=== PATIENT | male | born 1940 | race Caucasian/White ===

== ENCOUNTER 2018-12-16 10:05 | Day surgery (SDC) | payer MEDICARE ==
[2018-12-08 14:45] LABS: BASOPHILS % (AUTO) 0.9 % (0-1); EOSINOPHILS % (AUTO) 1.3 % (0-6); LYMPHOCYTES # (AUTO) 1.3 X10'3 (1.1-4.8); LYMPHOCYTES % (AUTO) 33.6 % (21-51); MEAN CORPUSCULAR HEMOGLOBIN 29.9 PG (27.0-31.0); MEAN CORPUSCULAR HGB CONC 32.8 g/dL (33.0-36.5); MEAN CORPUSCULAR VOLUME 91.1 FL (78-98); MEAN PLATELET VOLUME 9.4 FL (7.4-10.4); MONOCYTES # (AUTO) 0.3 X10'3 (0-0.9); MONOCYTES % (AUTO) 8.8 % (2-12); NEUTROPHILS # (AUTO) 2.1 X10'3 (1.8-7.7); NEUTROPHILS % (AUTO) 55.4 % (42-75); PRE OP HEMATOCRIT 42.3 % (42.0-52.0); PRE OP HEMOGLOBIN 13.9 g/dL (14.0-17.9); PRE OP PLATELET COUNT 187 X10'3 (140-440); RED BLOOD COUNT 4.64 X10'6 (4.70-6.10); RED CELL DISTRIBUTION WIDTH 13.2 % (11.5-14.5)
[2018-12-08 15:04] LABS: ALBUMIN 3.6 G/DL (3.4-5.0); ALBUMIN/GLOBULIN RATIO 1.2 (1.1-1.5); ALKALINE PHOSPHATASE 56 IU/L (46-116); BLOOD UREA NITROGEN 15 MG/DL (7-18); BUN/CREATININE RATIO 15.8 (5.4-32.0); CALCIUM 8.5 MG/DL (8.5-10.1); CHLORIDE 102 MMOL/L (99-107); CREATININE 0.95 MG/DL (0.60-1.10); PRE OP ALT 23 U/L (30-65); PRE OP ANION GAP 8 (8-16); PRE OP AST 17 U/L (10-37); PRE OP BILIRUB, TOTAL 0.4 MG/DL (0.0-1.0); PRE OP GLUCOSE 110 MG/DL (70-104); PRE OP POTASSIUM 4.5 MMOL/L (3.4-5.1); PRE OP SODIUM 142 MMOL/L (135-145); TOTAL CARBON DIOXIDE 31.7 MMOL/L (24-32); TOTAL PROTEIN 6.7 G/DL (6.4-8.2); eGFR 76 ML/MIN
[2018-12-08 15:07] LABS: PARTIAL THROMBOPLASTIN TIME 28 SECONDS (22-32)
[~2018-12-16] VITALS: Ht 185.4 cm; Wt 82.6 kg
[2018-12-16] VITALS (15 sets, daily range): BP systolic 105–154; BP diastolic 63–93
[~2018-12-16 10:05] MED LIST: BUPR150T6 PO; CITA20TA28 PO; FLO0.4C PO; PANT40TA39 PO; famotidine 20mg tablet PO ONE; ringers solution, lacted 1,000 ML IV SCH
[2018-12-16] MEDS ORDERED: cefazolin/dext.iso 2gm/100 ML IV ONE (10:30)
[2018-12-16] MEDS ORDERED: ondansetron/PF 4mg/2ml inj IV PRN ×2 (12:30→14:25)
[2018-12-16] MEDS ORDERED: morphine 4 MG/ML inj SYRINge IV PRN ×2 (12:30)
[2018-12-16] MEDS ORDERED: ringers solution, lacted 1,000 ML IV SCH (12:30)
[2018-12-16] MEDS ORDERED: proCHLORperazine 10 MG/2 ml inj IV PRN ×2 (12:30→14:25)
[2018-12-16] MEDS ORDERED: meperidine/PF 25mg/ml syringe IV PRN ×3 (12:30)
[2018-12-16] MEDS ORDERED: fentaNYL/PF 50MCG/1 ML 2ML syringe ONE (12:35)
[2018-12-16] MEDS ORDERED: midazolam 2 mg/2 ml injection ONE ×2 (12:35→12:36)
[2018-12-16] MEDS ORDERED: propofol inj 20 ML IV ONE (14:00)
[2018-12-16] MEDS ORDERED: mag hydrox/Alum hydrox/simeth 30ml oral suspension PO PRN (14:25)
[2018-12-16] MEDS ORDERED: acetaminophen 325mg tablet PO PRN (14:25)
[2018-12-16] MEDS ORDERED: zolpidem 5mg tablet PO PRN (14:25)
[2018-12-16] MEDS ORDERED: oxybutynin 5mg tablet PO PRN (14:25)
--- NOTE | 2018-12-16 14:25 | NUR ---
Received from OR via BED , accompanied by Anesthesiologist DR FAGAN and report given by Anesthesiolgist. PATIENT WAKING UP, DENIES PAIN, V/S WNL, NEUROVASCULAR CHECKS INTACT, 20G PIV LUE, SCD ON, 3 WAY IRRIGATION F/C CATH WITH NITHIN COLOR OUTPUT
[2018-12-16] MEDS ORDERED: CITA40TA22 PO (14:54)
[2018-12-16] MEDS ORDERED: HYDROcodone/acetaminophen 10/325mg tab PO PRN (15:00)
--- NOTE | 2018-12-16 15:05 | NUR ---
PATIENT A&OX4, DENIES PAIN, V/S WNL, NEUROVASCULAR CHECKS INTACT, 20G PIV LUE, SCD ON, 3 WAY IRRIGATION F/C CATH WITH NITHIN COLOR OUTPUT. . TAKEN TO 350A WITH ALL BELONGINGS AND HOOKED UP TO MONITORS IN ROOM AND REPORT GIVEN TO RN WHO HAS TAKEN OVER PATIENT CARE.
[2018-12-16] MEDS: ceFAZolin inj. 1,000 MG in dextrose 5%-water 50ml 50 ML IV SCH ×2 (16:35→23:39)
[2018-12-16] MEDS: potassium cl 20mEq in 1/2 NS 1,000 ML IV SCH ×2 (16:35→22:21)
[2018-12-16] MEDS ORDERED: opium/belladonna alkaloids No. 15A 30mg rectal suppository RC ONE (18:00)
--- NOTE | 2018-12-16 18:00 | NUR ---
Patient c/o dizziness and heart rate in the low 30s. BP dropped from 155s to 105s. Dr. Mars made aware and new orders received. Patient heart rate now on the 50s and no longer complaints of dizziness.
--- NOTE | 2018-12-16 18:30 | NUR ---
Patient in room [facility]. I have received report from KENNETH Long and had the opportunity to ask questions and assume patient care.
--- NOTE | 2018-12-16 18:46 | NUR ---
Problems reprioritized. Patient report given, questions answered & plan of care reviewed with KENNETH Wilhelm.
[2018-12-16] MEDS: docusate sod 100mg capsule PO SCH (19:26)
[2018-12-16] MEDS: tamsulosin 0.4mg capsule PO SCH (20:34)
[2018-12-17] VITALS: BP 124/73
[2018-12-17] MEDS: potassium cl 20mEq in 1/2 NS 1,000 ML IV SCH ×3 (01:08→17:23)
[2018-12-17 04:00] VITALS: BP 127/72
[2018-12-17 05:35] LABS: ALBUMIN 3.1 G/DL (3.4-5.0); ANION GAP 6 (8-16); BLOOD UREA NITROGEN 11 MG/DL (7-18); BUN/CREATININE RATIO 12.6 (5.4-32.0); CALCIUM 8.3 MG/DL (8.5-10.1); CHLORIDE 104 MMOL/L (99-107); CREATININE 0.87 MG/DL (0.60-1.10); GLUCOSE 87 MG/DL (70-104); POTASSIUM 4.4 MMOL/L (3.5-5.1); SODIUM 139 MMOL/L (135-145); TOTAL CARBON DIOXIDE 28.7 MMOL/L (24-32); eGFR 85 ML/MIN
--- NOTE | 2018-12-17 06:18 | NUR ---
Problems reprioritized. Patient report given, questions answered & plan of care reviewed with KENNETH Tate and KENNETH Bryan.
--- NOTE | 2018-12-17 07:05 | NUR ---
Patient in room [facility]. I have received report from Que COOPER and had the opportunity to ask questions and assume patient care.
[2018-12-17 07:14] LABS: BASOPHILS % (AUTO) 0.6 % (0-1); EOSINOPHILS # (AUTO) 0.1 X10'3 (0-0.9); EOSINOPHILS % (AUTO) 1.3 % (0-6); HEMATOCRIT 39.8 % (42.0-52.0); HEMOGLOBIN 13.4 g/dl (14.0-17.9); LYMPHOCYTES # (AUTO) 0.8 X10'3 (1.1-4.8); LYMPHOCYTES % (AUTO) 14.4 % (21-51); MEAN CORPUSCULAR HGB CONC 33.6 g/dL (33.0-36.5); MEAN CORPUSCULAR VOLUME 89.4 FL (78-98); MEAN PLATELET VOLUME 9.9 FL (7.4-10.4); MONOCYTES # (AUTO) 0.5 X10'3 (0-0.9); MONOCYTES % (AUTO) 9.2 % (2-12); NEUTROPHILS # (AUTO) 4.4 X10'3 (1.8-7.7); NEUTROPHILS % (AUTO) 74.5 % (42-75); PLATELET COUNT 169 X10'3 (140-440); RED BLOOD COUNT 4.46 X10'6 (4.70-6.10); RED CELL DISTRIBUTION WIDTH 13.2 % (11.5-14.5); WHITE BLOOD COUNT 5.8 X10'3 (4.5-11.0)
[2018-12-17 07:54] VITALS: BP 107/71
[2018-12-17] MEDS ORDERED: pantoprazole 40mg Tablet.DR PO SCH (08:00)
[2018-12-17] MEDS: pantoprazole 40mg Tablet.DR PO SCH (08:25)
[2018-12-17] MEDS: buPROPion SR 150mg tablet PO SCH (08:25)
[2018-12-17] MEDS: docusate sod 100mg capsule PO SCH ×2 (08:25→20:28)
[2018-12-17] MEDS: citalopram 20mg tablet PO SCH (08:26)
[2018-12-17] MEDS: ceFAZolin inj. 1,000 MG in dextrose 5%-water 50ml 50 ML IV SCH ×3 (08:26→23:05)
[2018-12-17 11:00] VITALS: BP 110/60
[2018-12-17 18:00] VITALS: BP 111/66
--- NOTE | 2018-12-17 18:08 | NUR ---
Problems reprioritized. Patient report given, questions answered & plan of care reviewed with Darvin COOPER.
--- NOTE | 2018-12-17 18:30 | NUR ---
Patient in room [facility]. I have received report from Randi COOPER and had the opportunity to ask questions and assume patient care.
[2018-12-17] MEDS: tamsulosin 0.4mg capsule PO SCH (20:28)
[2018-12-17] MEDS: lactobacillus rhamnosus 10,000 MMU CELLS/CAPSULE PO SCH (20:28)
[2018-12-18] VITALS: BP 133/79
[2018-12-18] MEDS: potassium cl 20mEq in 1/2 NS 1,000 ML IV SCH (01:03)
--- NOTE | 2018-12-18 06:30 | NUR ---
Problems reprioritized. Patient report given, questions answered & plan of care reviewed with JOSE MANUEL RN.
[2018-12-18 07:00] VITALS: BP 157/81
[2018-12-18] MEDS: lactobacillus rhamnosus 10,000 MMU CELLS/CAPSULE PO SCH (08:05)
[2018-12-18] MEDS: docusate sod 100mg capsule PO SCH (08:05)
[2018-12-18] MEDS: buPROPion SR 150mg tablet PO SCH (08:05)
[2018-12-18] MEDS: citalopram 20mg tablet PO SCH (08:06)
[2018-12-18] MEDS: pantoprazole 40mg Tablet.DR PO SCH (08:06)
[2018-12-18 11:00] VITALS: BP 111/73
[2018-12-18] MEDS ORDERED: DOCU-148 PO (11:15)
--- NOTE | 2018-12-18 14:00 | NUR ---
PATIENT DISCHARGE WAS DONE WITH SPOUSE IN ROOM, EDUCATION ON PROCEDURE AND CARE AFTER WAS DONE AT THIS TIME. PATIENT ALSO RECIEVED EDUCATION ON SORIA CATHETER CARE AT THIS TIME AND WAS GIVEN TWO CHOICES OF LEG BAGS PLUGS FOR THIRD LUMEN OF CATHETER, NIGHT TIME BAG AND EDUCATION ON ALL THE NECCESSARY INFORMATION FOR CARE. PATIENT HAD ONE NEW Rx TO BE PICKED UP AT PHARMACY ON WAY HOME AND WAS TAKEN TO LOBBY AFTER REMOVAL OF THE IV SITE CANULA WAS WHOLE AND INTACT UPON INSPECTION. PATIENT WAS ENCOURAGED TO RETURN TO ER IF HE HAS ANY SIGNS OR SYMPTOMS OF INFECTION. PATIENT ALSO ENCOURAGED TO RETURN IF URINARY DRAINAGE CHANGEDS TO TORSTEN RED BLOOD.
== END 2018-12-18 15:49 | disposition home or self-care (01) ==
LOC: PAS 10:05 → SUR 3N 15:09 → PAS 12-18 15:49
PROVIDERS: ATTEND Urology
DX: N40.1 Benign prostatic hyperplasia with lower urinary tract symptoms (principal); N13.8 Other obstructive and reflux uropathy; N41.1 Chronic prostatitis; F32.9 Major depressive disorder, single episode, unspecified; K21.9 Gastro-esophageal reflux disease without esophagitis; M19.90 Unspecified osteoarthritis, unspecified site; Z72.89 Other problems related to lifestyle; Z79.899 Other long term (current) drug therapy; Z98.890 Other specified postprocedural states; Z86.11 Personal history of tuberculosis; Z79.01 Long term (current) use of anticoagulants
CPT/HCPCS: 36415; 52601; 80048; 80053; 82948; 85025; 85610; 85730; 86885; 86900; 86901; 93005; J0690; J2250; J2704; J3010; J7060; J7120; A4346; A4355; A4615; G0378; J3480

== ENCOUNTER 2018-12-19 00:34 | Emergency (ER) | payer MEDICARE ==
[~2018-12-19] VITALS: Ht 185.4 cm; Wt 81.8 kg
[~2018-12-19 00:34] MED LIST changes: +CITA40TA22 PO; +DOCU-148 PO; -famotidine 20mg tablet PO ONE; -ringers solution, lacted 1,000 ML IV SCH
--- NOTE | 2018-12-19 00:53 | NUR ---
REMOVED CAP ON PTS 3-WAY SORIA CATH AND IMMEDIATELY HAD BLOOD-TINGED URINE COME OUT. DRAINED INTO A BASIN ROUGHLY 150 CC. FLUSHED BLADDER WITH 75CC X3 UNTIL URINE CLEAR. NO BLOOD CLOTS NOTED.
[2018-12-19 01:38] VITALS: BP 140/77
== END 2018-12-19 00:40 | disposition home or self-care (01) ==
LOC: ER 00:34
DX: T83.098A Other mechanical complication of other urinary catheter, initial encounter (principal); Z79.899 Other long term (current) drug therapy; Z90.79 Acquired absence of other genital organ(s); Z98.890 Other specified postprocedural states
CPT/HCPCS: 88305; 99282

== ENCOUNTER 2019-04-29 23:53 | Emergency (ER) | payer MEDICARE ==
[~2019-04-29] VITALS: Ht 185.4 cm; Wt 81.0 kg
[~2019-04-29 23:53] MED LIST changes: -CITA20TA28 PO
[2019-04-30] MEDS ORDERED: ketorolac trometh. 30mg/ml inj. IM ONE (00:30)
[2019-04-30] MEDS ORDERED: HYDROcodone/acetaminophen 5mg/325mg tablet PO ONE (00:30)
[2019-04-30] MEDS ORDERED: ketorolac trometh inj. 60 MG/2 ML VIAL IM ONE (00:45)
[2019-04-30 01:03] VITALS: BP 142/81
[2019-04-30] MEDS ORDERED: LIDOcaine 1% 30ml preserv. free vial IJ ONE (01:30)
[2019-04-30 03:31] LABS: GLUCOSE,SYNOVIAL FLUID 61 MG/DL; TOTAL PROTEIN,SYNOVIAL FLUID 5.6 GM/DL
[2019-04-30 04:36] LABS: APPEARANCE,SYNOVIAL FLUID BLOODY; COLOR,SYNOVIAL FLUID RED; SYN WBC 1693 /CU MM (0-200)
[2019-04-30 04:37] LABS: LYMPHOCYTES,SYNOVIAL FLUID 19 % (0-75); MONOCYTES,SYNOVIAL FLUID 12 % (0-0); NEUTROPHILS,SYNOVIAL FLUID 69 % (0-25); SYN RBC 2323717 /CU MM (0)
[2019-04-30 05:12] LABS: SYNOVIAL FLUID CRYSTALS QT NO CRYSTALS SEEN
== END 2019-04-30 02:49 | disposition home or self-care (01) ==
LOC: ER 23:54
DX: M25.461 Effusion, right knee (principal); F10.99 Alcohol use, unspecified with unspecified alcohol-induced disorder; Z98.890 Other specified postprocedural states; Z79.899 Other long term (current) drug therapy; Y90.9 Presence of alcohol in blood, level not specified
CPT/HCPCS: 20610; 73564; 82945; 84157; 87070; 89051; 89060; 96372; 99284; J1885; J2001

== ENCOUNTER 2019-05-03 08:06 | Emergency (ER) | payer MEDICARE ==
[~2019-05-03] VITALS: Ht 185.4 cm; Wt 81.8 kg
[2019-05-03 08:21] VITALS: BP 126/72
[2019-05-03] MEDS ORDERED: acetaminophen 325mg tablet PO ONE (08:45)
== END 2019-05-03 09:45 | disposition home or self-care (01) ==
LOC: ER 08:06
DX: M25.461 Effusion, right knee (principal); M19.90 Unspecified osteoarthritis, unspecified site; Z98.890 Other specified postprocedural states; Z79.899 Other long term (current) drug therapy; Z96.611 Presence of right artificial shoulder joint
CPT/HCPCS: 93971; 99284

== ENCOUNTER 2019-05-11 14:19 | Emergency (ER) | payer MEDICARE ==
[~2019-05-11] VITALS: Ht 185.4 cm; Wt 81.0 kg
[2019-05-11 14:28] VITALS: BP 135/68
== END 2019-05-11 15:39 | disposition home or self-care (01) ==
LOC: ER 14:20
DX: M25.461 Effusion, right knee (principal); M19.90 Unspecified osteoarthritis, unspecified site; Z98.890 Other specified postprocedural states; Z79.899 Other long term (current) drug therapy
CPT/HCPCS: 99281

== ENCOUNTER 2019-12-16 15:04 | Emergency (ER) | payer MEDICARE ==
[~2019-12-16] VITALS: Ht 185.4 cm; Wt 81.0 kg
--- NOTE | 2019-12-16 15:22 | NUR ---
CALL , [facility] SHE WILL PICK PT UP WHEN PT IS READY.
[2019-12-16] MEDS ORDERED: proCHLORperazine 10 MG/2 ml inj IV ONE (15:55)
[2019-12-16] MEDS ORDERED: diphenhydrAMINE 50 mg/ml inj IV ONE (15:55)
[2019-12-16] MEDS ORDERED: normal saline 1000ml 1,000 ML IV ONE (15:55)
[2019-12-16 16:29] LABS: ALBUMIN 3.4 G/DL (3.4-5.0); ANION GAP 5 (8-16); BLOOD UREA NITROGEN 17 MG/DL (7-18); BUN/CREATININE RATIO 17.7 (5.4-32.0); CALCIUM 8.5 MG/DL (8.5-10.1); CHLORIDE 100 MMOL/L (99-107); CREATININE 0.96 MG/DL (0.60-1.10); GLUCOSE 86 MG/DL (70-104); SODIUM 133 MMOL/L (135-145); eGFR 75 ML/MIN
[2019-12-16 16:35] LABS: BASOPHILS % (AUTO) 0.8 % (0-1); EOSINOPHILS # (AUTO) 0.1 X10'3 (0-0.9); EOSINOPHILS % (AUTO) 1.3 % (0-6); HEMATOCRIT 40.1 % (42.0-52.0); HEMOGLOBIN 13.4 g/dl (14.0-17.9); LYMPHOCYTES # (AUTO) 1.5 X10'3 (1.1-4.8); LYMPHOCYTES % (AUTO) 29.8 % (21-51); MEAN CORPUSCULAR HEMOGLOBIN 29.9 PG (27.0-31.0); MEAN CORPUSCULAR HGB CONC 33.4 g/dL (33.0-36.5); MEAN CORPUSCULAR VOLUME 89.6 FL (78-98); MEAN PLATELET VOLUME 9.5 FL (7.4-10.4); MONOCYTES # (AUTO) 0.4 X10'3 (0-0.9); MONOCYTES % (AUTO) 8.7 % (2-12); NEUTROPHILS % (AUTO) 59.4 % (42-75); PLATELET COUNT 190 X10'3 (140-440); RED BLOOD COUNT 4.48 X10'6 (4.70-6.10); RED CELL DISTRIBUTION WIDTH 13.6 % (11.5-14.5)
[2019-12-16] MEDS ORDERED: iohexol 350MG/ML 100ml bottle IV ONE (16:40)
--- NOTE | 2019-12-16 17:09 | NUR ---
pt back from ct scan,using restroom at this time.
[2019-12-16 17:23] VITALS: BP 143/75
[2019-12-16] MEDS ORDERED: LIDOcaine 1% 30ml preserv. free vial IJ ONE (17:30)
--- NOTE | 2019-12-16 18:13 | NUR ---
PT UP OUT OF BED AND AMBULATED TO THE BATHROOM WITH A FRONT WHEEL WALKER.
== END 2019-12-16 18:40 | disposition home or self-care (01) ==
LOC: ER 15:05
DX: M54.2 Cervicalgia (principal); R51 Headache; M25.512 Pain in left shoulder; M25.511 Pain in right shoulder; M19.90 Unspecified osteoarthritis, unspecified site; Z98.890 Other specified postprocedural states; Z79.899 Other long term (current) drug therapy
CPT/HCPCS: 20552; 36415; 70450; 70496; 70498; 80048; 85025; 93005; 96374; 96375; 99285; J0780; J1200; J7030; Q9967

== ENCOUNTER 2023-12-29 04:15 | Emergency (ER) | payer MEDICARE ==
[~2023-12-29] VITALS: Ht 182.9 cm; Wt 84.2 kg
[~2023-12-29 04:15] MED LIST changes: +BUPR150T23 PO; -BUPR150T6 PO
[2023-12-29] MEDS: diphenhydrAMINE 50 mg/ml inj IV ONE (04:37)
[2023-12-29] MEDS: LORazepam 2 mg/ml vial IV ONE (04:37)
[2023-12-29] MEDS: dexamethasone sod phosphate 10mg/ml inj IM STA (05:03)
[2023-12-29] MEDS: gabapentin 400mg capsule PO ONE (05:03)
[2023-12-29] MEDS: triamcinolone acetonide 40mg/ml inj IM ONE (05:06)
[2023-12-29] MEDS: ketorolac trometh 15mg/ml vial 15 MG/ML ML IM ONE (05:32)
[2023-12-29 06:13] LABS: ALBUMIN 3.6 G/DL (3.4-5.0); ANION GAP 8 (8-16); BLOOD UREA NITROGEN 14 MG/DL (7-18); BUN/CREATININE RATIO 17.5 (10.0-20.0); CALCIUM 8.9 MG/DL (8.5-10.1); CHLORIDE 100 MMOL/L (99-107); GLUCOSE 88 MG/DL (70-104); POTASSIUM 3.8 MMOL/L (3.5-5.1); SODIUM 133 MMOL/L (135-145); TOTAL CARBON DIOXIDE 24.7 MMOL/L (24-32); eCRCL 75 ML/MIN; eGFR > 90 ML/MIN
[2023-12-29] MEDS ORDERED: heparin 25,000 UNIT/250ml bag 250 ML IV PRN (06:20)
[2023-12-29] MEDS ORDERED: heparin 10,000 units/1 ML INJ IV PRN (06:20)
[2023-12-29] MEDS: heparin 10,000 units/1 ML INJ IV ONE (06:20)
[2023-12-29 06:25] VITALS: TEMP 98.4
[2023-12-29 07:17] LABS: BASOPHILS % (AUTO) 0.6 % (0-1); EOSINOPHILS % (AUTO) 0.7 % (0-6); HEMATOCRIT 43.5 % (42.0-52.0); HEMOGLOBIN 14.2 g/dl (14.0-17.9); LYMPHOCYTES # (AUTO) 0.7 X10'3 (1.1-4.8); LYMPHOCYTES % (AUTO) 14.2 % (21-51); MEAN CORPUSCULAR HEMOGLOBIN 29.1 PG (27.0-31.0); MEAN CORPUSCULAR HGB CONC 32.7 g/dL (33.0-36.5); MEAN CORPUSCULAR VOLUME 88.8 FL (78-98); MEAN PLATELET VOLUME 9.4 FL (7.4-10.4); MONOCYTES # (AUTO) 0.2 X10'3 (0-0.9); MONOCYTES % (AUTO) 4.7 % (2-12); NEUTROPHILS # (AUTO) 4.1 X10'3 (1.8-7.7); NEUTROPHILS % (AUTO) 79.8 % (42-75); PLATELET COUNT 189 X10'3 (140-440); WHITE BLOOD COUNT 5.2 X10'3 (4.5-11.0)
[2023-12-29 07:25] LABS: APTT 27 SECONDS (22-32); PROTHROMBIN TIME 10.4 SECONDS (9.0-12.0)
[2023-12-29] MEDS: ketorolac trometh 15mg/ml vial 15 MG/ML ML IV ONE (07:25)
[2023-12-29 07:34] LABS: MAGNESIUM 2.1 MG/DL (1.5-2.4)
[2023-12-29] MEDS: aspirin 81mg tab.chew PO ONE (08:05)
[2023-12-29 10:40] VITALS: BP 135/81; PULSE 62; RESP 16; O2SAT 96
== END 2023-12-29 10:45 | disposition home or self-care (01) ==
LOC: ER 04:15
DX: M25.511 Pain in right shoulder (principal); G43.909 Migraine, unspecified, not intractable, without status migrainosus; M19.90 Unspecified osteoarthritis, unspecified site; Z72.89 Other problems related to lifestyle; Z98.890 Other specified postprocedural states; Z79.899 Other long term (current) drug therapy
CPT/HCPCS: 36415; 71045; 80048; 83735; 83880; 84484; 85025; 85610; 85730; 93005; 96372; 96374; 99285; J1100; J1885; J3301